=== PATIENT | male | born 1960 | race Hispanic/Latino ===

== ENCOUNTER 2017-12-17 10:26 | Outpatient (CLI) | payer MEDICARE ==
--- NOTE | 2017-12-17 12:57 | RAD ---
LUMBAR SPINE 3 VIEWS: Date: 12/17/17 HISTORY: Post laminectomy syndrome. FINDINGS/IMPRESSION: Three lateral views of the lumbar spine in neutral, flexion, and extension positions demonstrate no e vidence of change in alignment on flexion or extension. Degenerative changes are present. Vertebral b rubi heights are maintained. POS: SHREE
== END 2017-12-17 10:27 | disposition home or self-care (01) ==
LOC: RAD 10:26
PROVIDERS: ATTEND Nurse Practitioner Family
DX: M96.1 Postlaminectomy syndrome, not elsewhere classified (principal); M47.896 Other spondylosis, lumbar region
CPT/HCPCS: 72100

== ENCOUNTER 2017-12-23 13:52 | Outpatient (CLI) | payer MEDICARE ==
--- NOTE | 2017-12-23 17:16 | MRI ---
MRI LUMBAR SPINE WITH AND WITHOUT CONTRAST: Date: 12/23/17 HISTORY: Status post laminectomy syndrome. Low back pain radiating down the left leg and into the left foot. COMPARISON: None. TECHNIQUE: Lumbar spine MRI is performed with and without intravenous Gadolinium administration. Multisequential , multiplanar imaging is performed. FINDINGS: Appropriate T1 marrow signal intensity of the lumbar vertebra. Vertebral body height is maintained. N o fracture. No significant STIR hyperintensity to suggest edema or ligamentous injury. There appears to be fusion or lack of complete segmentation of L5-S1. Symmetric signal intensity of the psoas muscles. Conus medullaris terminates at the mid T12 level. Appropriate signal intensity of the visualized solid organs. On the postcontrast images, there is no abnormal enhancement within the thecal sac, including the cau da equina and conus medullaris. No abnormal enhancement of the vertebral bodies. T12-L1: Adequate disc hydration. No significant central canal stenosis or foraminal narrowing. L1-L2: Desiccation with mild loss of disc space height. No significant posterior disc abnormality. No signif icant central canal stenosis. Mild bilateral foraminal narrowing. L2-L3: Adequate disc hydration. No significant posterior disc abnormality. No significant central canal sten osis. Foramina are patent. L3-L4: Adequate disc hydration. No significant posterior disc abnormality. No significant central canal sten osis. Neural foramina are patent bilaterally. L4-L5: Desiccation with mild loss of disc space height. There is no high grade central canal stenosis. No si gnificant lateral recess narrowing. There is posterior element hypertrophy. Mild bilateral foraminal narrowing. L5-S1: Extensive epidural lipomatosis which narrows the thecal sac. Mild bilateral foraminal narrowing. IMPRESSION: No high grade central canal stenosis or high grade foraminal narrowing. There is narrowing of the the ryan sac at L5-S1 which is due to epidural lipomatosis. Comparison with prior MRI would be beneficial. POS: JAIR
== END 2017-12-23 13:53 | disposition home or self-care (01) ==
LOC: MRI 13:52
PROVIDERS: ATTEND Neurological Surgery
DX: M96.1 Postlaminectomy syndrome, not elsewhere classified (principal); E88.2 Lipomatosis, not elsewhere classified
CPT/HCPCS: 72158

== ENCOUNTER 2019-08-22 21:39 | Observation (INO) | payer MEDICARE ==
--- NOTE | 2019-08-22 22:35 | RAD ---
Exam: Chest one view HISTORY:Chest pain Comparison: 04/11/2015 FINDINGS: Cardiac silhouette: Normal Aorta: Unremarkable Pulmonary vessels: Normal Costophrenic angles: Clear LUNGS: No masses or consolidation. Pneumothorax: None Osseous abnormalities: None IMPRESSION: No acute cardiopulmonary process.
[2019-08-22 22:38] LABS: #Basophils 0.1 thou/uL (0.0-0.2); #Eosinphils 0.5 thou/uL (0.0-0.7); #Lymphocytes 2.8 thou/uL (1.20-3.40); #Monocytes 0.5 thou/uL (0.11-0.59); #Neutrophils 4.5 thou/uL (1.40-6.50); %Basophils 0.7 % (0.0-1.0); %Eosinophils 5.7 % (0.0-10.0); %Lymphocytes 33.4 % (21.0-51.0); %Neutrophils 54.3 % (42.0-75.0); Hemoglobin 14.9 g/dL (14.0-18.0); Mean Corpuscular HGB CONC 35.5 g/dL (32.0-36.0); Mean Corpuscular Hemoglobin 31.4 pg (27.0-31.0); Mean Corpuscular Volume 88.4 fL (78.0-98.0); Mean Platelet Volume 7.8 fL (7.4-10.4); Platelet Count 158 thou/uL (130-400); RBC Distribution Width 12.8 % (11.5-14.5); Red Blood Cell (RBC) Count 4.75 mill/uL (4.70-6.10); White Blood Cell (WBC) Count 8.2 thou/uL (4.8-10.8)
[2019-08-22 22:54] LABS: ALT (SGPT) 15 U/L (8-55); AST (SGOT) 9 U/L (5-34); Alkaline Phosphatase 141 U/L (40-110); Anion Gap 13 mmol/L (10-20); BUN (Urea Nitrogen) 6 mg/dL (8.4-25.7); Bilirubin, Total 0.6 mg/dL (0.2-1.2); Calc. Creatinine Clearance 0 mL/min (70-130); Calcium 8.5 mg/dL (7.8-10.44); Carbon Dioxide 22 mmol/L (22-29); Chloride 106 mmol/L (98-107); Estimated GFR-MDRD 76; Globulin 2.6 g/dL (2.4-3.5); Glucose 240 mg/dL (70-105); Lipase 30 U/L (8-78); Potassium 3.2 mmol/L (3.5-5.1); Protein, Total 6.6 g/dL (6.0-8.3); Sodium 138 mmol/L (136-145)
[2019-08-22] MEDS ORDERED: Acetaminophen 325 MG TAB ONE (23:59)
[2019-08-23] MEDS ORDERED: Morphine 2 MG/ML SYRINGE ONE ×3 (00:24→15:46)
[2019-08-23] MEDS ORDERED: Morphine 2 MG/ML SYRINGE SLOW IVP SCH (00:30)
[2019-08-23] MEDS ORDERED: Potassium Chloride 20 MEQ TAB PO SCH (00:45)
[2019-08-23] MEDS: Sodium Chloride 0.9% 1,000 ML IV SCH ×2 (01:36→17:06)
--- NOTE | 2019-08-23 01:55 | HP ---
TIME OF ASSESSMENT: 0030 hours. CHIEF COMPLAINT: Left-sided chest pain. HISTORY OF PRESENT ILLNESS: Mr. Pichardo is a pleasant 59-year-old gentleman with a known history of type 2 diabetes, hyperthyroidism, and history of colon cancer, who presents with complaints of chest pain. The patient states he was watching TV when the pain came on suddenly at around 8:00 p.m. He states it was 10/10 in severity, radiating down his left arm. According to his daughters, he became diaphoretic and was cool to touch. He was having difficulty catching his breath due to the severity of the pain. His family called EMS and en route, he was given 324 mg of aspirin as well as sublingual nitroglycerin and nitroglycerin paste. The patient reports having improvement in his pain to about 3/10 in severity. Since being in the Emergency Department, however, his pain has started to build back up and is now 8/10 in severity. No associated shortness of breath. No diaphoresis at present. No nausea or vomiting. No dizziness. No abdominal pain. Has not had any recent fevers, chills, or cough. No hemoptysis. Denies any trauma or injuries. The pain is not reproducible with palpation and is not worse with any type of movements. He reports undergoing some sort of workup, perhaps a stress test, but does not recall and states he was recommended to follow up with a group tester, but never followed through. ED COURSE: In the emergency department, the patient underwent an EKG which showed normal sinus rhythm with a heart rate of 77. No ST changes or T-wave abnormalities. We have just repeated another EKG to assess for any dynamic changes given the recurrent pain and it showed normal sinus rhythm with a heart rate of 82. No ST changes or T-wave abnormalities. Second EKG is essentially is stable. He was given 650 mg of Tylenol for his pain without any significant improvement. He underwent a chest x-ray, which showed no acute cardiopulmonary process. Laboratory studies were also done showing a normal full blood count. Potassium low at 3.2. Creatinine 1.01, GFR 76, glucose 240, calcium 8.5. LFTs unremarkable. Alkaline phosphatase 141, lipase 30. Troponin negative. Albumin 4.0. PAST MEDICAL HISTORY: 1. Current smoker. 2. Diabetes mellitus. 3. Hyperthyroidism. 4. GERD. 5. History of type 2 colon cancer, status post resection. PAST SURGICAL HISTORY: 1. Back surgery x3. 2. Left knee surgery. 3. Colon resection. FAMILY HISTORY: Noncontributory. SOCIAL HISTORY: The patient lives at home with his family. Reports chewing tobacco and does smoke. Denies any heavy alcohol consumption or illicit drug use. ALLERGIES: NO KNOWN DRUG ALLERGIES. CURRENT MEDICATIONS: 1. Metformin. 2. Glipizide. 3. Methimazole. 4. Omeprazole. PHYSICAL EXAMINATION: GENERAL: The patient appears well developed, well nourished. He does appear to be in discomfort at this time. VITAL SIGNS: Temperature 98.2, pulse 88, blood pressure 179/71, respirations 14 , O2 saturation 100% on room air. HEENT: Normocephalic and atraumatic. Pupils are equal, round, and reactive to light. Sclerae icterus. Oropharynx is clear. NECK: Supple without lymphadenopathy. LUNGS: Clear to auscultation bilaterally without any wheezes, rales, or rhonchi. CARDIAC: Regular rate and rhythm without audible murmurs, rubs, or gallops. ABDOMEN: Soft, nontender, and nondistended. Normoactive bowel sounds present. No guarding or rigidity. No renal angle tenderness. IMPRESSION AND PLAN: Mr. Pichardo is a pleasant 59-year-old gentleman, who is being admitted for management of the following. 1. Acute coronary syndrome rule out. The patient with left-sided chest pain radiating down his left arm. Initial improvement with nitroglycerin paste. Now , pain is recurring. Repeat EKG obtained shows no dynamic changes. Initial troponin negative. Second troponin also negative. We will continue to trend troponins. The patient has had an abnormal stress test in the past and did not follow up with Cardiology as recommended. We will place a consultation to Cardiology. Primary is in place to repeat EKG to assess for dynamic changes if patient has recurring pain. For his pain, we will give him 2 mg of morphine. The patient will be on continuous cardiac monitoring. We will check BNP. We will obtain an echo. 2. Hypokalemia. Replace and continue to monitor. Check magnesium. 3. Diabetes mellitus. Initiate insulin sliding scale. Monitor blood glucose. 4. Hyperthyroidism. Resume home medications once verified. 5. Gastroesophageal reflux disease. Resume omeprazole. 6. Deep venous thrombosis prophylaxis. Mechanical SCDs. 7. Code status is full. Surrogate decision maker is his daughter, Haylie Pichardo. The patient's case was discussed with Dr. Ellsworth, who agrees upon care as described above. Job ID: [id number] MTDD
[2019-08-23] MEDS: Nitroglycerin 0.4 MG TAB (25 Tab Bottle) PO PRN ×3 (04:34→04:49)
[2019-08-23 05:08] LABS: Cardiac Risk 4.3 (Less than 4.5)
[2019-08-23] MEDS: Morphine 2 MG/ML SYRINGE SLOW IVP PRN ×2 (06:36→20:14)
[2019-08-23] MEDS ORDERED: Aspirin 325 mg Enteric Coated Tablet PO SCH (09:00)
[2019-08-23] MEDS ORDERED: Communication Order-Pharmacy FS SCH (10:00)
[2019-08-23] MEDS ORDERED: Sodium Chloride 0.9% 1,000 ML IV SCH (10:00)
[2019-08-23] MEDS ORDERED: Diazepam 5 MG TAB PO SCH (10:00)
[2019-08-23] MEDS ORDERED: Heparin (Artline) 1,000 ML ONE (10:09)
[2019-08-23] MEDS ORDERED: Lidocaine 1% (PF) 30 ML VIAL ONE (10:09)
[2019-08-23] MEDS ORDERED: Midazolam HCl 2 mg/2 ml Vial ONE (10:50)
[2019-08-23] MEDS ORDERED: Fentanyl 100 MCG/2 ML VIAL ONE ×2 (10:51→11:58)
[2019-08-23] MEDS ORDERED: Heparin 10,000 UNITS/1 ML VIAL ONE ×2 (11:19→12:26)
[2019-08-23] MEDS ORDERED: Aspirin Chewable 81 MG TAB ONE (11:21)
[2019-08-23] MEDS ORDERED: Nitroglycerin 100MG/250ML BOT 250 ML ONE (11:21)
[2019-08-23] MEDS ORDERED: Heparin (Artline) 500 ML ONE (11:33)
--- NOTE | 2019-08-23 11:44 | CON ---
DATE OF CONSULTATION: 08/23/2019 REASON FOR CONSULTATION: Chest pressure and left arm pain. HISTORY OF PRESENT ILLNESS: Mr. Pichardo is a 59-year-old gentleman with history of diabetes and tobacco use, admitted with resting chest pressure and left arm pain last night. The patient states he was at home resting when he had the onset of pressure in the left side of his chest and pain into the left arm, he was watching television that was about 8 o'clock, it was 10/10. His daughter said he became diaphoretic. He is having difficulty breathing. His family called EMS, he was brought here, he was given aspirin and nitroglycerin and nitroglycerin paste. The patient's discomfort improved and then increased again. The EKG did not show any acute changes. The patient's pain is gradually resolved. The patient still has left shoulder pain, but the chest and left arm pain are resolved. The patient told that he probably had some problem with his heart in the past, that he should get evaluated but that was never done he tells me. PAST MEDICAL HISTORY: 1. He chews tobacco. 2. He has diabetes for about 10 years. He tells me he does not smoke. 3. History of type 2 colon cancer. PAST SURGICAL HISTORY: Back surgery, knee surgery, colon resection. FAMILY HISTORY: Noncontributory. SOCIAL HISTORY: Lives at home with his family. Chews tobacco. Denies drug use or heavy alcohol consumption. ALLERGIES: NONE KNOWN. MEDICATIONS: 1. Metformin. 2. Glipizide. 3. . 4. Omeprazole. PHYSICAL EXAMINATION: GENERAL: This is a pleasant 59-year-old man resting comfortably, in no distress. VITAL SIGNS: Blood pressure 138/65, pulse 82 and regular. HEENT: Eyes, sclerae nonicteric. Mouth, mucous membranes moist. NECK: Supple. No lymphadenopathy. LUNGS: Clear. CARDIAC: Normal S1, normal S2. There is no murmur, rub, or gallop. ABDOMEN: Soft and nontender. No hepatosplenomegaly. EXTREMITIES: Warm and dry. No clubbing or cyanosis. There is no edema. Good peripheral pulses. LABORATORY DATA: The cardiac enzymes first less than 0.010, followup is 0.016, which is below the indeterminate range, still in the negative range. TSH was low. Cholesterol LDL 73. EKG did not show any acute changes. ASSESSMENT: 1. Chest pressure, highly suggestive of unstable angina. 2. EKG did not show any acute changes. The troponin was normal, the second was slightly elevated but still in the negative range. 3. Extremely strong risk factors for coronary artery disease with a longstanding history of diabetes and tobacco use. In view of the recurrent discomfort at rest, I think the best options to proceed to cardiac catheterization. Discussed risk of stroke, heart attack, iodine allergy, loss of blood supply to leg or kidney, stent thrombosis, stent restenosis were all discussed. The patient understands and wished to proceed. Job ID: [id number]
[2019-08-23] MEDS ORDERED: Adenosine 6 MG/2 ML VIAL ONE (12:09)
[2019-08-23] MEDS ORDERED: TICAGRELOR 90 MG TABLET ONE (12:10)
[2019-08-23] MEDS ORDERED: Milk Of Magnesia 30 ML UDCUP PO PRN (12:35)
[2019-08-23] MEDS ORDERED: TICAGRELOR 90 MG TABLET PO SCH (12:45)
[2019-08-23] MEDS ORDERED: Iopamidol 370 76% 100 ML VIAL ONE (13:56)
[2019-08-23] MEDS ORDERED: Iopamidol 370 76% 50 ML VIAL FS ONE (13:56)
--- NOTE | 2019-08-23 17:51 | PDOC.EVN ---
Event Note - Event Note Event Note: s/p heart cath with 2v CAD s/p PTCA/PCI with JOANIE to 1st Diag, EF 60%.
[2019-08-23] MEDS ORDERED: Atorvastatin Calcium 40 MG TAB PO SCH (21:00)
[2019-08-23] MEDS: TICAGRELOR 90 MG TABLET PO SCH (22:03)
[2019-08-24 04:58] LABS: #Eosinphils 0.5 thou/uL (0.0-0.7); #Monocytes 0.6 thou/uL (0.11-0.59); #Neutrophils 7.3 thou/uL (1.40-6.50); %Basophils 0.1 % (0.0-1.0); %Eosinophils 4.4 % (0.0-10.0); %Lymphocytes 19.3 % (21.0-51.0); %Neutrophils 70.3 % (42.0-75.0); Hemoglobin 15.3 g/dL (14.0-18.0); Mean Corpuscular HGB CONC 34.5 g/dL (32.0-36.0); Mean Corpuscular Hemoglobin 30.3 pg (27.0-31.0); Mean Corpuscular Volume 87.9 fL (78.0-98.0); Platelet Count 151 thou/uL (130-400); RBC Distribution Width 12.6 % (11.5-14.5); Red Blood Cell (RBC) Count 5.06 mill/uL (4.70-6.10); White Blood Cell (WBC) Count 10.4 thou/uL (4.8-10.8)
[2019-08-24 05:23] LABS: ALT (SGPT) 13 U/L (8-55); AST (SGOT) 14 U/L (5-34); Albumin 3.6 g/dL (3.5-5.0); Alkaline Phosphatase 128 U/L (40-110); Anion Gap 10 mmol/L (10-20); BUN (Urea Nitrogen) 8 mg/dL (8.4-25.7); Bilirubin, Total 0.9 mg/dL (0.2-1.2); Calc. Creatinine Clearance 121 mL/min (70-130); Calcium 8.2 mg/dL (7.8-10.44); Carbon Dioxide 22 mmol/L (22-29); Chloride 108 mmol/L (98-107); Estimated GFR-MDRD Greater than 90; Globulin 2.4 g/dL (2.4-3.5); Glucose 166 mg/dL (70-105); Potassium 3.4 mmol/L (3.5-5.1); Sodium 137 mmol/L (136-145)
[2019-08-24 08:22] VITALS: BMI 30.8
[2019-08-24] MEDS ORDERED: Aspirin Chewable 81 MG TAB PO SCH (09:00)
[2019-08-24] MEDS ORDERED: Lisinopril 2.5 MG TAB PO SCH (09:00)
[2019-08-24] MEDS ORDERED: Potassium Chloride 20 MEQ TAB PO SCH (09:30)
[2019-08-24] MEDS: TICAGRELOR 90 MG TABLET PO SCH (09:30)
--- NOTE | 2019-08-24 10:18 | PRG ---
DATE OF SERVICE: 08/24/2019 SUBJECTIVE: Mr. Pichardo is doing very well. No complaints. He feels fine. OBJECTIVE: VITAL SIGNS: His blood pressure 134/69, yesterday was 141/65; pulse 86 and regular. LUNGS: Clear. CARDIAC: Normal S1 and S2. ABDOMEN: Soft, nontender. EXTREMITIES: No edema. His right groin is nontender. LABORATORY DATA: Potassium is 3.4. ASSESSMENT AND PLAN: 1. Status post unstable angina/acute coronary syndrome with critical lesion in the mid circumflex, treated with stent implantation, 2.5 x 24 mm drug-eluting stent. He will need to be on aspirin for lifetime and Brilinta for one year or if he cannot afford to tolerate Brilinta, we will change him to Plavix for at least one year in view of the acute coronary syndrome. 2. Lisinopril 2.5 mg a day for mild elevation of blood pressure. 3. Atorvastatin 40 mg a day. His LDL cholesterol 72 here in the hospital, may have been higher previously, we really do not know, but there is an increasing evidence of lowering of the cholesterol into 50 or low range may be actually better. 4. Aspirin 81 mg a day. 5. Brilinta 90 mg twice a day. Job ID: [id number]
[2019-08-24 12:07] VITALS: TEMP 98.2
--- NOTE | 2019-08-24 15:45 | DIS ---
DATE OF ADMISSION: 08/23/2019 DATE OF DISCHARGE: 08/24/2019 DISCHARGE DIAGNOSES: 1. Acute coronary syndrome, status post cardiac catheterization and stenting of the mid circumflex artery with drug-eluting stent. 2. Diabetes mellitus. 3. Coronary artery disease. 4. Hyperthyroidism. 5. Gastroesophageal reflux disease. 6. History of colon cancer, status post resection. 7. Hypokalemia, resolved. SEARCH ENGINE OPTIMIZER: Dr. Suzan Arnold, Cardiology Service. PROCEDURE: Cardiac catheterization with stenting of the circumflex artery. HOSPITAL COURSE: The patient is a 59-year-old male with a known history of type 2 diabetes mellitus, hyperthyroidism, and history of colon cancer, who presented with complaints of chest pain. The pain started at night when he was watching TV. He said that severity was 10/10 and it was radiating down to his left arm. The patient became diaphoretic, was cool to touch according to the daughters, who were present there. He had some shortness of breath. EMS was called and he was given aspirin and sublingual nitro and nitro paste. He was transferred to the emergency room for further evaluation. He had some improvement from nitro and aspirin, but the pain started coming back while in the emergency room. There was no nausea or vomiting. No dizziness. No abdominal pain. There was no cough, fever, or chills. The pain was not reproducible with palpation and it did not get worse with any type of movement. His electrocardiogram, which was obtained in the emergency room showed normal sinus rhythm with heart rate of 77. No ST changes or T-wave abnormalities. There was no any ST changes or T-wave abnormalities on the second electrocardiogram, which was done in the emergency room. The patient was given 650 mg of Tylenol without significant improvement and had the chest x-ray, which showed no acute cardiopulmonary process. His lab work showed normal blood count. Potassium 3.2, creatinine 1.01, glucose 240, and calcium 8.5. LFTs were unremarkable. Alkaline phosphatase 141. Lipase 30. Troponin I was negative. The patient got admitted to the hospital for further evaluation and management of his chest pain. Second troponin level came back negative. Apparently, he had abnormal stress test in the past, but he did not follow up with Cardiology after that, which was recommended. Cardiology was consulted and he was switched to morphine IV since he did not have any improvement from p.o. Tylenol. The patient was seen by help desk specialist, who recommended cardiac catheterization, which was done the next day, which showed stenotic lesion in mid circumflex artery, basically was two-vessel coronary artery disease. The PTCA was done with JOANIE to first diagonal. The EF showed 60%. Postprocedure, he was placed on Brilinta and postoperative phase was unremarkable and uneventful. He is doing well. His blood pressure is 137/65, pulse is 78, temperature is 98.2, respirations 16, and O2 saturation is 98% on room air. Physical examination did not show any problems with his right groin where the point of entry to the vascular system was for cardiac catheterization. His vitals are stable. He is ready to be discharged. We recommended him to follow up with his primary care physician in [address] Arnold's PA in 2 weeks for Cardiology followup. DIET: He is going to stay on 2000-calories ADA diet. ACTIVITIES: As tolerated. MEDICATIONS: At the time of discharge, 1. Aspirin 81 mg once a day. 2. Atorvastatin 40 mg at bedtime. 3. Lisinopril 2.5 mg once a day. 4. Brilinta, which is ticagrelor 90 mg twice a day. 5. Ozempic 0.5 mg subcutaneously q.7 days. 6. Methimazole 30 mg every morning. 7. Glipizide 2.5 mg every morning. 8. Metformin 500 mg twice a day. 9. Nexium 40 mg once a day. The patient is going to have prescription for blood pressure cuff and he will start monitoring his blood pressure daily. Also, we recommend him to discuss with primary care physician his methimazole and the hyperthyroidism treatment since his TSH is very suppressed and he will make some adjustments to the dose. Job ID: [id number]
[2019-08-24 15:47] VITALS: BP 139/65
--- NOTE | 2019-08-28 18:41 | EKG ---
Test Reason : STAT Blood Pressure : / mmHG Vent. Rate : 087 BPM Atrial Rate : 087 BPM P-R Int : 196 ms QRS Dur : 088 ms QT Int : 364 ms P-R-T Axes : 040 046 036 degrees QTc Int : 438 ms Normal sinus rhythm Nonspecific ST abnormality Abnormal ECG When compared with ECG of 11-APR-2015 18:52, ST no longer elevated in Inferior leads ST no longer elevated in Anterolateral leads Confirmed by MUKUND GURROLA, SBarbara (4) on 08/28/2019 6:40:51 PM Referred By: CORBIN Confirmed By:DR. Cameron DUVAL MD
--- NOTE | 2019-08-28 18:44 | EKG ---
Test Reason : POST STENT X1 Blood Pressure : / mmHG Vent. Rate : 081 BPM Atrial Rate : 081 BPM P-R Int : 180 ms QRS Dur : 094 ms QT Int : 370 ms P-R-T Axes : 042 057 036 degrees QTc Int : 429 ms Normal sinus rhythm Normal ECG When compared with ECG of 23-AUG-2019 04:39, (Unconfirmed) No significant change was found Confirmed by MUKUND GURROLA, . S. (4) on 08/28/2019 6:44:27 PM Referred By: ZAIRA Confirmed By:DR. Cameron DUVAL MD
--- NOTE | 2019-08-28 18:47 | EKG ---
Test Reason : Blood Pressure : / mmHG Vent. Rate : 084 BPM Atrial Rate : 084 BPM P-R Int : 174 ms QRS Dur : 102 ms QT Int : 360 ms P-R-T Axes : 038 029 021 degrees QTc Int : 425 ms Normal sinus rhythm Normal ECG When compared with ECG of 23-AUG-2019 12:46, (Unconfirmed) No significant change was found Confirmed by MUKUND GURROLA, SBarbara (4) on 08/28/2019 6:46:39 PM Referred By: ZAIRA Confirmed By:DR. Cameron DUVAL MD
== END 2019-08-24 13:43 | disposition home or self-care (01) ==
LOC: ERS 21:39 → 2SW 08-23 00:41
PROVIDERS: ADMIT Hospitalist; ATTEND Hospitalist
PROC: 027034Z Dilation of Coronary Artery, One Artery with Drug-eluting Intraluminal Device, Percutaneous Approach (ICD-10-PCS; principal; 2019-08-23)
PROC: 4A023N7 Measurement of Cardiac Sampling and Pressure, Left Heart, Percutaneous Approach (ICD-10-PCS; 2019-08-23)
PROC: B2111ZZ Fluoroscopy of Multiple Coronary Arteries using Low Osmolar Contrast (ICD-10-PCS; 2019-08-23)
DX: I24.9 Acute ischemic heart disease, unspecified (principal); I25.110 Atherosclerotic heart disease of native coronary artery with unstable angina pectoris; E11.9 Type 2 diabetes mellitus without complications; E05.90 Thyrotoxicosis, unspecified without thyrotoxic crisis or storm; K21.9 Gastro-esophageal reflux disease without esophagitis; E87.6 Hypokalemia; F17.220 Nicotine dependence, chewing tobacco, uncomplicated; Z85.038 Personal history of other malignant neoplasm of large intestine; Z79.84 Long term (current) use of oral hypoglycemic drugs; Z79.899 Other long term (current) drug therapy; Z90.49 Acquired absence of other specified parts of digestive tract
CPT/HCPCS: 71045; 80053; 80061; 82962; 83690; 83735; 83880; 84484 ×3; 85025; 85347 ×3; 90732; 93005 ×3; 93306; 93458; 93798; 94760 ×3; 96361; 96374; 96376; 99285; C1725; C1769 ×2; C1874; C1887; C9600; G0009; G0378 ×4; 36415; 36416; 84443; 90471; 92928; 93010; 99152; 99153; J0153; J1644; J2001; J2250; J2270; J3010; Q9967

== ENCOUNTER 2021-10-30 02:22 | Day surgery (SDC) | payer MEDICARE, OTHER | END 2021-10-30 16:20 | disposition home or self-care (01) | LOC: ERS 02:22 → SDC 10:20 | PROVIDERS: ATTEND Specialist | PROC: 0DTJ4ZZ Resection of Appendix, Percutaneous Endoscopic Approach (ICD-10-PCS; principal; 2021-10-30) | DX: K35.30 Acute appendicitis with localized peritonitis, without perforation or gangrene (principal); K80.20 Calculus of gallbladder without cholecystitis without obstruction; K76.0 Fatty (change of) liver, not elsewhere classified; E11.9 Type 2 diabetes mellitus without complications; I10 Essential (primary) hypertension; K21.9 Gastro-esophageal reflux disease without esophagitis; F17.220 Nicotine dependence, chewing tobacco, uncomplicated; Z20.822 Contact with and (suspected) exposure to COVID-19; Z79.82 Long term (current) use of aspirin; Z79.84 Long term (current) use of oral hypoglycemic drugs; Z79.899 Other long term (current) drug therapy; Z85.038 Personal history of other malignant neoplasm of large intestine; Z95.5 Presence of coronary angioplasty implant and graft | CPT/HCPCS: 44970; 74177; 80053; 81003; 83690; 83880; 84484; 85025; 93005; A4649 ×2; U0002; 36415; 88304; J1100; J1170; J2175; J2250; J2270; J2405; J2543; J2704; J2765; J3010; S0020; S0028 ==

== ENCOUNTER 2022-07-14 14:27 | Emergency (ER) | payer OTHER ==
[2022-07-14] MEDS ORDERED: Metoclopramide HCl 10 MG/2 ML VIAL ONE (14:58)
[2022-07-14] MEDS ORDERED: diphenhydrAMINE 50 MG/ML VIAL ONE (14:58)
[2022-07-14] MEDS ORDERED: Acetaminophen 500 MG TAB ONE (14:58)
[2022-07-14 15:34] LABS: #Basophils 0.1 thou/uL (0.0-0.2); #Eosinphils 0.1 thou/uL (0.0-0.7); #Lymphocytes 1.8 thou/uL (1.20-3.40); #Monocytes 0.5 thou/uL (0.11-0.59); #Neutrophils 7.6 thou/uL (1.40-6.50); %Basophils 0.7 % (0.0-1.0); %Eosinophils 1.2 % (0.0-10.0); %Monocytes 4.9 % (0.0-10.0); %Neutrophils 75.2 % (42.0-75.0); Mean Corpuscular HGB CONC 33.2 g/dL (32.0-36.0); Mean Corpuscular Hemoglobin 31.6 pg (27.0-31.0); Platelet Count 137 10x3/uL (130-400); RBC Distribution Width 12.9 % (11.5-14.5); Red Blood Cell (RBC) Count 4.76 mill/uL (4.70-6.10); White Blood Cell (WBC) Count 10.1 10x3/uL (4.8-10.8)
[2022-07-14 16:11] LABS: ALT (SGPT) 20 U/L (8-55); AST (SGOT) 17 U/L (5-34); Albumin 4.5 g/dL (3.5-5.0); Alkaline Phosphatase 87 U/L (40-110); Anion Gap 16 mmol/L (10-20); BUN (Urea Nitrogen) 12 mg/dL (8.4-25.7); Bilirubin, Total 0.9 mg/dL (0.2-1.2); Calc. Creatinine Clearance 0 mL/min (70-130); Calcium 9.4 mg/dL (7.8-10.44); Carbon Dioxide 22 mmol/L (22-29); Chloride 108 mmol/L (98-107); Estimated GFR 85; Globulin 2.9 g/dL (2.4-3.5); Glucose 88 mg/dL (70-105); Potassium 3.7 mmol/L (3.5-5.1); Protein, Total 7.4 g/dL (6.0-8.3); Sodium 142 mmol/L (136-145)
[2022-07-14] MEDS ORDERED: Ketorolac Tromethamine 30 MG/ML VIAL ONE (16:50)
== END 2022-07-14 17:19 | disposition home or self-care (01) ==
LOC: ERS 14:27
DX: R51.9 Headache, unspecified (principal); E78.00 Pure hypercholesterolemia, unspecified; E03.9 Hypothyroidism, unspecified; F17.290 Nicotine dependence, other tobacco product, uncomplicated; E11.9 Type 2 diabetes mellitus without complications; I10 Essential (primary) hypertension; Z79.84 Long term (current) use of oral hypoglycemic drugs; Z79.82 Long term (current) use of aspirin
CPT/HCPCS: 70450; 80053; 85025; 87804; 96374; 96375; J1200; J1885; J2765